=== PATIENT | male | born 1975 | race Caucasian/White ===

== ENCOUNTER 2019-09-16 12:05 | Emergency (ER) | payer OTHER ==
--- NOTE | 2019-09-16 13:37 | EDM.PDOC ---
ED HPI GENERAL MEDICAL PROBLEM - General Chief Complaint: Eye Problems Stated Complaint: CANT SEE OUT OF RT EYE Time Seen by Provider: 09/16/19 13:10 Source of Information: Reports: Patient History Limitations: Reports: No Limitations - History of Present Illness INITIAL COMMENTS - FREE TEXT/NARRATIVE: This is a 43 yo who presents with concerns of right sided vision changes. A lawnmower threw a stick which struck a closed right eye. Now he is seeing floaters and feels as if looking through wax paper. No contact. Unable to see chart to do visual acuity No FB sensation. Right Eye Pain Score (Numeric/FACES): 5 - Related Data Allergies Allergy/AdvReac Type Severity Reaction Status Date / Time No Known Allergies Allergy Verified 09/16/19 13:17 Home Meds: Home Meds allopurinoL [Zyloprim] 200 mg PO DAILY 09/16/19 [History] Past Medical History HEENT History: Reports: Impaired Vision Other HEENT History: wears soft contact lenes Cardiovascular History: Reports: None Respiratory History: Reports: None Gastrointestinal History: Reports: None Musculoskeletal History: Reports: Gout Neurological History: Reports: None Psychiatric History: Reports: None Endocrine/Metabolic History: Reports: None Hematologic History: Reports: None Immunologic History: Reports: None Oncologic (Cancer) History: Reports: Renal Dermatologic History: Reports: None - Past Surgical History Male Surgical History: Reports: Nephrectomy Other Male Surgeries/Procedures: partial right Other Oncologic Surgeries/Procedures: nephrectomy right partial Social & Family History - Tobacco Use Smoking Status *Q: Former Smoker Used Tobacco, but Quit: Yes Month/Year Tobacco Last Used: 25 years - Caffeine Use Caffeine Use: Reports: Coffee - Recreational Drug Use Recreational Drug Use: No ED ROS GENERAL - Review of Systems Review Of Systems: See Below Constitutional: Reports: No Symptoms HEENT: Reports: Vision Change Respiratory: Reports: No Symptoms Cardiovascular: Reports: No Symptoms Endocrine: Reports: No Symptoms GI/Abdominal: Reports: No Symptoms : Reports: No Symptoms Musculoskeletal: Reports: No Symptoms Skin: Reports: No Symptoms Neurological: Reports: No Symptoms Psychiatric: Reports: No Symptoms Hematologic/Lymphatic: Reports: No Symptoms Immunologic: Reports: No Symptoms ED EXAM GENERAL W FULL EYE - Physical Exam Exam: See Below Exam Limited By: No Limitations General Appearance: Alert, No Apparent Distress Eyelids: Bilateral: Normal Appearance Extraocular Movements: Bilateral: Intact Pupils: Normal Accommodation Comments: Right eye without visible trauma, some scleral injection, no hyphema. Gross vision intact. Ears: Normal External Exam Nose: Normal Inspection Throat/Mouth: Normal Inspection Head: Atraumatic, Normocephalic, Other (small laceration above right eye) Neck: Normal Inspection Respiratory/Chest: No Respiratory Distress Cardiovascular: Regular Rate, Rhythm GI/Abdominal: Soft, Non-Tender Back Exam: Normal Inspection Extremities: Normal Inspection Neurological: Alert, Oriented Psychiatric: Normal Affect, Normal Mood Skin Exam: Warm, Dry Course - Vital Signs Last Recorded V/S: Last Vital Signs Temp 36.5 C 09/16/19 13:19 Pulse 62 09/16/19 13:19 Resp 16 09/16/19 13:19 BP 134/75 09/16/19 13:19 Pulse Ox 99 09/16/19 13:19 - Re-Assessments/Exams Free Text/Narrative Re-Assessment/Exam: This is a 43 yo who presents with right sided vision loss after blunt trauma. Not able to complete visual acuity testing. I attempted a fundoscopic exam but was not able to get a good view. He surely would benefit from a dilated eye exam and optho consultation - I called the eye clinic and they are willing/comfortable seeing him. I did verify they were comfortable with assessing even if he had serious condition such as traumatic retinal detachment. He was discharged to proceed directly to eye clinic. 09/16/19 18:54 Departure - Departure Time of Disposition: 13:33 Disposition: DC/Tfer to Other 70 Clinical Impression: Impaired vision - Discharge Information *PRESCRIPTION DRUG MONITORING PROGRAM REVIEWED*: No *COPY OF PRESCRIPTION DRUG MONITORING REPORT IN PATIENT ZACKARY: No Instructions: Eye Contusion, [id number] Referrals: PCP,None [Primary Care Provider] - Forms: ED Department Discharge Additional Instructions: Please proceed directly to the eye clinic. Sepsis Event Note (ED) - Evaluation Sepsis Screening Result: No Definite Risk - Focused Exam Vital Signs: Vital Signs Temp Pulse Resp BP Pulse Ox 09/16/19 13:19 36.5 C 62 16 134/75 99 09/16/19 13:07 36.5 C 62 16 134/75 99
== END 2019-09-16 13:48 | disposition other institution (70) ==
LOC: JP.ED 12:05
DX: H54.7 Unspecified visual loss (principal); M10.9 Gout, unspecified; Z79.899 Other long term (current) drug therapy; Z87.891 Personal history of nicotine dependence
CPT/HCPCS: 99283